=== PATIENT | male | born 1965 | race Caucasian/White ===

== ENCOUNTER → 2023-05-17 12:29 | Outpatient (REF) | payer OTHER, SELFPAY | LOC: HWRAD 12:29 | PROVIDERS: ATTENDING PHYSICIAN Family Medicine | DX: R05.3 Chronic cough (principal) | CPT/HCPCS: 71046 ==

== ENCOUNTER → 2023-10-31 15:04 | Outpatient (REF) | payer SELFPAY | LOC: HWRAD 15:04 | PROVIDERS: ATTENDING PHYSICIAN Family Medicine | DX: Z13.6 Encounter for screening for cardiovascular disorders (principal) | CPT/HCPCS: 75571 ==

== ENCOUNTER → 2024-03-12 08:41 | Outpatient (REF) | payer OTHER, SELFPAY | LOC: RAD 08:41 | PROVIDERS: ATTENDING PHYSICIAN Family Medicine | DX: R13.10 Dysphagia, unspecified (principal) | CPT/HCPCS: 74221 ==

== ENCOUNTER 2024-08-20 06:20 | Day surgery (SDC) | payer OTHER, SELFPAY ==
[2024-08-20 08:05] VITALS: BP 153/87; BMI 27.5
[2024-08-20 08:24] VITALS: BMI 27.5
[2024-08-20 10:09] VITALS: BP 127/98
[2024-08-20 10:15] VITALS: BP 138/96
[2024-08-20 10:26] VITALS: BP 130/88
== END 2024-08-20 10:36 | disposition home or self-care (01) ==
LOC: SDS 06:20
PROVIDERS: ATTENDING PHYSICIAN Internal Medicine
DX: Z12.11 Encounter for screening for malignant neoplasm of colon (principal); D12.2 Benign neoplasm of ascending colon; K55.20 Angiodysplasia of colon without hemorrhage; K63.5 Polyp of colon; K58.9 Irritable bowel syndrome, unspecified; R13.10 Dysphagia, unspecified; K29.70 Gastritis, unspecified, without bleeding; K44.9 Diaphragmatic hernia without obstruction or gangrene; K31.89 Other diseases of stomach and duodenum; K29.80 Duodenitis without bleeding; R93.3 Abnormal findings on diagnostic imaging of other parts of digestive tract; Z86.0100 Personal history of colon polyps, unspecified
CPT/HCPCS: 45380; 43239; 88305; 88342

== ENCOUNTER 2024-10-31 06:20 | Day surgery (SDC) | payer OTHER, SELFPAY | END 2024-10-31 13:26 | disposition home or self-care (01) | LOC: GI 06:20 | PROVIDERS: ATTENDING PHYSICIAN Internal Medicine | DX: R13.10 Dysphagia, unspecified (principal); K44.9 Diaphragmatic hernia without obstruction or gangrene; K22.2 Esophageal obstruction; K29.80 Duodenitis without bleeding; Q40.2 Other specified congenital malformations of stomach; K31.89 Other diseases of stomach and duodenum; Z98.890 Other specified postprocedural states | CPT/HCPCS: 43239; 88305; 88342 ==

== ENCOUNTER → 2025-02-10 12:00 | Outpatient (REF) | payer OTHER, SELFPAY | LOC: DHSLP 12:00 | PROVIDERS: ATTENDING PHYSICIAN Family Medicine | DX: G47.33 Obstructive sleep apnea (adult) (pediatric) (principal) | CPT/HCPCS: 95806 ==